=== PATIENT | female | born 1935 | race Caucasian/White ===

== ENCOUNTER 2017-11-27 19:57 | Emergency (ER) | payer MEDICARE, BC ==
[2017-11-27 20:35] VITALS: RESP 18
--- NOTE | 2017-11-27 21:16 | XR ---
EXAMINATION TYPE: XR ribs RT DATE OF EXAM: 11/27/2017 COMPARISON: NONE HISTORY: Rib pain TECHNIQUE: 5 views FINDINGS: There is no pleural effusion or pneumothorax. Right lung is clear of consolidation. I see n o rib fracture. IMPRESSION: No rib fracture seen.
--- NOTE | 2017-11-27 22:32 | ED ---
General Adult HPI - General Chief complaint: Chest Pain Stated complaint: cracked rib Time Seen by Provider: 11/27/17 21:24 Source: patient Mode of arrival: ambulatory Limitations: no limitations - History of Present Illness Initial comments: 82-year-old female patient presents with right rib pain 2 days. Patient states 2 days ago she was reaching down into the washer. States that the washer dug into the right ribs. States that after that she developed pain to the ribs however today after attempting to lie down the pain became much worse. Patient states that the pain progressed and worsened throughout the day. States it was difficult for her to breathe. States that she has increased pain to the right ribs whenever she attempts to take a deep breath. She denies any cough or hemoptysis. She denies any fevers or chills. Denies any abdominal pain, nausea, or vomiting. Denies any history of rib injury. Denies any other injuries. Patient denies any headache, neck pain, back pain, dizziness, weakness , abdominal pain, nausea, vomiting, or difficulties with bowel movements or urination. - Related Data Previous Rx's Medication Instructions Recorded Lidocaine 5% Patch [Lidoderm] 1 patch TOPICAL DAILY #10 patch 11/27/17 Allergies Allergy/AdvReac Type Severity Reaction Status Date / Time Penicillins Allergy Rash/Hives Verified 11/27/17 20:35 Review of Systems ROS Statement: Those systems with pertinent positive or pertinent negative responses have been documented in the HPI. ROS Other: All systems not noted in ROS Statement are negative. Past Medical History Past Medical History: Hypertension, Osteoarthritis (OA) History of Any Multi-Drug Resistant Organisms: None Reported Past Surgical History: Section, Orthopedic Surgery, Tonsillectomy Additional Past Surgical History / Comment(s): hilaria knee, thumb Past Psychological History: No Psychological Hx Reported Smoking Status: Never smoker Past Alcohol Use History: None Reported Past Drug Use History: None Reported General Exam Limitations: no limitations General appearance: alert, in no apparent distress, other (This is a well- developed, well-nourished elderly female patient in no acute distress. Vital signs upon presentation are temperature 97.2F, pulse 54, respirations 18, blood pressure 151/70, pulse ox 95% on room air.) Eye exam: Present: normal appearance, PERRL, EOMI. Absent: scleral icterus, conjunctival injection, periorbital swelling ENT exam: Present: normal exam, normal oropharynx, mucous membranes moist Respiratory exam: Present: normal lung sounds bilaterally, chest wall tenderness (Right lower rib tenderness. ), other (No ecchymosis. ). Absent: respiratory distress, wheezes, rales, rhonchi, stridor Cardiovascular Exam: Present: regular rate, normal rhythm, normal heart sounds. Absent: systolic murmur, diastolic murmur, rubs, gallop, clicks GI/Abdominal exam: Present: soft, normal bowel sounds, other (No abdominal tenderness. Negative Sandy's Sign. ). Absent: distended, tenderness, guarding , rebound, rigid Back exam: Present: normal inspection, other (No flank ecchymosis.). Absent: CVA tenderness (R), CVA tenderness (L) Neurological exam: Present: alert, oriented X3, CN II-XII intact Psychiatric exam: Present: normal affect, normal mood Skin exam: Present: warm, dry, intact, normal color. Absent: rash Course Vital Signs 11/27/17 20:30 Temperature 97.3 F L Pulse Rate 54 L Respiratory 18 Rate Blood Pressure 151/70 O2 Sat by Pulse 95 Oximetry Medical Decision Making - Medical Decision Making 82-year-old female patient presents the emergency department today for complaints of right rib pain. Physical examination is reveal tenderness to the right anterior ribs. There is no evidence of ecchymosis or surface trauma. Patient is currently breathing without difficulty. Vital signs are stable. X- ray of the right ribs is negative. Right lung appears normal. I did discuss findings and results with the patient. We did discuss possibility of an occult fracture. We did discuss coughing and deep breathing exercises and splinting. Patient will be given incentive spirometry education. We will provide Lidoderm patch here and she is instructed to take Tylenol and Motrin. I did offer stronger pain medication however she refuses stating that she gets "silly". She is instructed to follow-up with her primary care physician for recheck in 1- 2 days. Return parameters discussed in detail. She verbalizes understanding and agrees with this plan. - Radiology Data Radiology results: report reviewed, image reviewed 5 views of the right ribs are obtained. There is no pleural effusion or pneumothorax. Right lung is clear consolidation. I see no rib fracture. Impression by Dr. Ostermann shows no rib fracture seen. Disposition Clinical Impression: Rib injury Disposition: HOME SELF-CARE Condition: Good Instructions: Rib Fracture (ED) Additional Instructions: Perform coughing and deep breathing. Use incentives prominent are as educated. Use pillow for splinting. Use medications as directed. Follow-up with your primary care physician for recheck in 1-2 days. Return here immediately for any new, worsening, or concerning symptoms. Prescriptions: Lidocaine 5% Patch [Lidoderm] 1 patch TOPICAL DAILY #10 patch Is patient prescribed a controlled substance at d/c from ED?: No Referrals: Antolin Arzola Jr, DO [Primary Care Provider] - 1-2 days Time of Disposition: 22:42
[2017-11-27] MEDS ORDERED: LIDOCAINE 5% PATCH TOPICAL STA (22:39)
[2017-11-27] MEDS ORDERED: ACETAMINOPHEN TAB 500 MG TAB PO STA (22:40)
[2017-11-27 23:25] VITALS: BP 145/79; PULSE 56; TEMP 97.6
== END 2017-11-27 23:24 | disposition home or self-care (01) ==
LOC: EC 19:57
DX: S29.9XXA Unspecified injury of thorax, initial encounter (principal); Z88.0 Allergy status to penicillin; Z53.29 Procedure and treatment not carried out because of patient's decision for other reasons; W29.2XXA Contact with other powered household machinery, initial encounter; Y92.009 Unspecified place in unspecified non-institutional (private) residence as the place of occurrence of the external cause
CPT/HCPCS: 99283

== ENCOUNTER → 2019-05-16 | Outpatient (CLI) | payer MEDICARE, OTHER ==
--- NOTE | 2019-05-16 11:57 | P.CRDCN ---
History of Present Illness Consult date: 05/16/19 History of present illness: This is a 83-year-old female with history of hypertension and also hypercholesterolemia who was referred for a stress test because of chest pains. Patient has been having chest pains mostly with moderate exertional activities. She complains of some aching sensation on the left side associated with shortness of breath. No complaints of any dizziness or palpitations or syncope. Patient walked on the treadmill for about 4 minutes and 40 seconds achieving a maximum rate of 119 with a blood pressure of about 159/54. Patient developed mild chest tightness associated shortness of breath. Her EKG showed ST depression which is horizontal with T-wave inversions in the inferolateral leads. These EKG changes persisted for about 67 minutes. In the post x-rays. Her symptoms gradually improved. Her echocardiogram at baseline showed normal LV function. There is inducible ischemic changes involving the inferobasal segment and inferoseptal area on the stress echocardiogram. Because of her symptoms and ischemic changes, patient is advised to have a cardiac catheterization for definitive diagnosis. Patient fully understood and accepted the risks and benefits. This is being scheduled to be done on Thursday. Review of Systems REVIEW OF SYSTEMS: CONSTITUTIONAL:. Patient is doing well. No complaints of fever or chills EYES: Denies diplopia, blurring of vision EARS, NOSE, MOUTH, THROAT: Denies headaches, denies sore throat. CARDIOVASCULAR: As per the chart RESPIRATORY: Denies shortness of breath, denies cough. GASTROINTESTINAL: Denies change in appetite, denies abdominal pain, denies diarrhea GENITOURINARY: Denies hematuria, denies infections. MUSKULOSKELETAL: Denies pain, denies swelling. Denies any cramps or claudication INTEGUMENTARY: Denies rash, denies eczema. NEUROLOGICAL: Denies focal weakness, or visual disturbance. Denies any dizziness or syncope PSYCHIATRIC: Denies anxiety, denies depression. HEMATOLOGIC/LYMPHATIC: Denies any bleeding, denies enlarged lymph nodes. Past Medical History Past Medical History: Hypertension, Osteoarthritis (OA) History of Any Multi-Drug Resistant Organisms: None Reported Past Surgical History: Section, Orthopedic Surgery, Tonsillectomy Additional Past Surgical History / Comment(s): hilaria knee, thumb Past Psychological History: No Psychological Hx Reported Smoking Status: Never smoker Past Alcohol Use History: None Reported Past Drug Use History: None Reported Medications and Allergies Home Medications and Allergies Comment(s): Tenormin, Zocor, Lamictal, gabapentin, Synthyroid, Mirapex Home Medications Medication Instructions Recorded Confirmed Type Lidocaine 5% Patch [Lidoderm] 1 patch TOPICAL DAILY #10 patch 11/27/17 Rx Allergies Allergy/AdvReac Type Severity Reaction Status Date / Time Penicillins Allergy Rash/Hives Verified 11/27/17 20:35 Physical Exam GENERAL EXAM: Patient is alert and oriented and doesn't appear to be in any acute distress HEENT: Normocephalic. Normal reaction of pupils, equal size, normal range of extraocular motion. No erythema or exudates in the throat. NECK: No masses, no nuchal rigidity. CHEST: No chest wall deformity. LUNGS: Equal air entry with no crackles or wheeze. HEART: S1 and S2 normal with no audible mumurs or gallops. Regular rhythm, femorals equal on both sides.. ABDOMEN: No hepatosplenomegaly, normal bowel sounds, no guarding or rigidity. SKIN: No rashes CENTRAL NERVOUS SYSTEM: No focal deficits. EXTREMITIES: No cyanosis, clubbing or edema. EKG Interpretations (text) Sinus rhythm Assessment and Plan (1) Crescendo angina Current Visit: Yes Status: Acute Code(s): I20.0 - UNSTABLE ANGINA SNOMED Code(s): 1167659 (2) Positive cardiac stress test Current Visit: Yes Status: Acute Code(s): R94.39 - ABNORMAL RESULT OF OTHER CARDIOVASCULAR FUNCTION STUDY SNOMED Code(s): 153046405 (3) Essential hypertension Current Visit: Yes Status: Acute Code(s): I10 - ESSENTIAL (PRIMARY) HYPERTENSION SNOMED Code(s): 49273464 (4) Hypercholesterolemia Current Visit: Yes Status: Acute Code(s): E78.00 - PURE HYPERCHOLESTEROLEMIA, UNSPECIFIED SNOMED Code(s): 67507473 (5) Hypothyroidism Current Visit: Yes Status: Acute Code(s): E03.9 - HYPOTHYROIDISM, UNSPECIFIED SNOMED Code(s): 26946712 Plan: Patient is already on Tenormin and Zocor. I'm going to add by mouth nitrates and also nitroglycerin sublingual. Patient is advised to take a baby aspirin a day. She is being scheduled for a cardiac catheterization. Further recommendations depend upon the findings on the cardiac cath.
--- NOTE | 2019-05-16 12:02 | P.STRESS ---
- Stress Test Note Stress Test Results/Findings: Exam Performed: Exam Date: Reason for Exam: Height: Weight: Protocol: Stage: Duration of Exercise: Resting Heart Rate: Resting Blood Pressure: Maximum Achieved Heart Rate: Maximum Achieved Blood Pressure: 85% PMHR: 100% PMHR: METS: Technologist Comment: Stress Test Results/Findings: This is a 83-year-old female with history of hypertension and hypercholesterolemia being evaluated for symptoms of chest pain. Stress data: Baseline EKG showed sinus rhythm with normal W[place] interval, aspiration. Blood pressure at rest is 113/83 with pulse rate of 56. Patient walked on the Ike protocol for 4 minutes and 40 seconds achieving a maximum heart rate of 119 with blood pressure 151/58. EKGs taken during the exercise showed about [address] depression in inferolateral leads, which is horizontal associated with T-wave inversions. These changes persisted for about 6-7 minutes, in the post exercise period. Echo data: Baseline echo images show normal wall motion and thickening. Exercise echo measures showed hypokinesia of the inferobasal and inferoseptal area suggestive of ischemia. These changes reverted back to normal in the post exercise period. Final impression: #1. Positive stress test #2. Positive stress echo with reversible ischemic changes noted in the inferoseptal and inferobasal segments
--- NOTE | 2019-05-17 13:11 | ECHOS ---
Stress Test Results/Findings: Exam Performed: Stress Echo Exam Date: 05/16/2019 Reason for Exam: Chest Pain Height: 62inches Weight: 180lbs Protocol: Stresss Echo Stage: 2 Duration of Exercise: 4:40 Resting Heart Rate: 56 Resting Blood Pressure: 113/83 Maximum Achieved Heart Rate: 119 Maximum Achieved Blood Pressure: 156/53 85% PMHR: 118 100% PMHR: 139 METS: Technologist Comment: Stress Test Results/Findings: This is a 83-year-old female with history of hypertension and hypercholesterolemia being evaluated for symptoms of chest pain. Stress data: Baseline EKG showed sinus rhythm with normal IA interval, aspiration. Blood pressure at rest is 113/83 with pulse rate of 56. Patient walked on the Ike protocol for 4 minutes and 40 seconds achieving a maximum heart rate of 119 with blood pressure 151/58. EKGs taken during the exercise showed about [address] depression in inferolateral leads, which is horizontal associated with T-wave inversions. These changes persisted for about 6-7 minutes, in the post exercise period. Echo data: Baseline echo images show normal wall motion and thickening. Exercise echo measures showed hypokinesia of the inferobasal and inferoseptal area suggestive of ischemia. These changes reverted back to normal in the post exercise period. Final impression: #1. Positive stress test #2. Positive stress echo with reversible ischemic changes noted in the inferoseptal and inferobasal segments MTDD
== END | disposition home or self-care (01) ==
LOC: RADNMMAIN 09:39
PROVIDERS: ATTEND Family Medicine
DX: R07.1 Chest pain on breathing (principal)
CPT/HCPCS: 93351

== ENCOUNTER → 2019-05-18 | Day surgery (SDC) | payer MEDICARE ==
[2019-05-17 10:05] VITALS: BMI 33.0
[~2019-05-18] MED LIST: ALPRAZolam 0.25 MG TAB PO PRN; ALPRAZolam 0.5 MG TAB PO PRN; ASPIRIN 325 MG TAB PO ONE; ATORVASTATIN 80 MG TAB PO ONE; HEPARIN SODIUM 1,000 UN/ML (10ML VL) IV ONE; HEPARIN SODIUM 1,000 UN/ML (10ML VL) ONE; IOPAMIDOL-370 125ML BTL INJ ONE; LIDOCAINE 1% INJ 10MG/ML (20 ML MDV) ONE; LIDOCAINE 1% INJ 10MG/ML (20 ML MDV) SQ ONE; NITROGLYCERIN SL TABS 0.4 MG TAB SUBLINGUAL PRN; PRAMIPEXOLE 0.25 MG TAB PO SCH; SODIUM CHLORIDE 0.9% 1,000 ML in EMPTY BAG 1 BAG IV ONE; VERAPAMIL 2.5 MG/ML 2 ML AMP ONE; VERAPAMIL SYRINGE (5 MG/10 ML) INTRAARTER ONE; fentaNYL (PF) 50 MCG/ML 2 ML AMP IV ONE; fentaNYL (PF) 50 MCG/ML 2 ML AMP ONE
[2019-05-18 08:33] VITALS: RESP 18; TEMP 98.1
[2019-05-18 08:41] LABS: Basophils % (A) 0 %; Eosinophils # (A) 0.1 k/uL (0-0.7); Eosinophils % (A) 2 %; HCT 38.4 % (34.0-46.0); HGB 12.6 gm/dL (11.4-16.0); Lymphocytes # (A) 1.9 k/uL (1.0-4.8); Lymphocytes % (A) 29 %; MCH 31.2 pg (25.0-35.0); MCHC 32.9 g/dL (31.0-37.0); MCV 94.8 fL (80.0-100.0); Mean Platelet Volume 7.9; Monocytes # (A) 0.4 k/uL (0-1.0); Monocytes % (A) 5 %; Neutrophils % (A) 61 %; Platelet Count 203 k/uL (150-450); RBC 4.05 m/uL (3.80-5.40); RDW 13.5 % (11.5-15.5); WBC 6.6 k/uL (3.8-10.6)
[2019-05-18 08:47] LABS: Calcium 9.1 mg/dL (8.4-10.2); Potassium 4.3 mmol/L (3.5-5.1)
[2019-05-18] MEDS: MIDAZOLAM 2 MG/2 ML VIAL IV ONE ×2 (09:12→09:32)
--- NOTE | 2019-05-18 10:05 | P.CARDCATH ---
Date of Procedure: 05/18/19 Preoperative Diagnosis: Chest pain, hypertension and positive stress test Postoperative Diagnosis: Normal coronary arteries Procedure(s) Performed: Left heart catheterization without left ventriculography Description of Procedure: HISTORY: This is a 83-year-old female with history of hypertension was been having exertional chest tightness and shortness of breath. Had a stress test which showed positive changes on the EKGs with the ischemic changes noted in the inferior and inferolateral wall on the stress echocardiogram. Patient was advised to have cardiac catheterization for definitive diagnosis. CONSENT:I have discussed the risks, benefits and alternative therapies for the above-mentioned procedure and for both sedation/analgesia as well as necessary blood product administration, if indicated, as they pertain to this patient. The patient has indicated understanding and acceptance of the risks and procedures discussed. [] PROCEDURE: Patient was brought to the lab in a fasting state. Patient was given some IV sedation. The right wrist was infiltrated and the right radial artery was entered using Seldinger technique. A 6-Wallisian sheath was left in place. Attempts were made to do cardiac catheterization but right coronary catheter could not be manually patent. Because of tortuosity in subclavian artery area and the procedure was abandoned and completed from the right groin approach. TR band was applied for hemostasis The right groin is infiltrated with lidocaine and right femoral artery was entered using Seldinger technique. A 6-Wallisian catheter was left in place and selective coronary arteriography was performed. Patient tolerated the procedure well. Femoral angiogram was performed and Angio-Seal was applied for hemostasis. No immediate complications were noted and patient was transferred to [facility] in a stable condition Conscious Sedation: Versed 1mg Fentanyl 12.5 g Duration 35minutes HEMODYNAMICS: The aortic pressure is about 140/70. The left ventricle end- diastolic pressure was 12. There was no gradient across the aortic valve SELECTIVE CORONARY ARTERIOGRAPHY: LEFT MAIN: Short and divides into left circumflex and LAD immediately THE LEFT ANTERIOR DESCENDING CORONARY ARTERY: This is a fair caliber vessel with mild irregularity in the proximal portion. Gives rise to moderate caliber diagonal branch. The LAD and branches are free of any Sigmund occlusive disease THE LEFT CIRCUMFLEX AND IS CORONARY ARTERY:. This is a good caliber vessel giving rise good-sized OM branch. Circumflex coronary artery is a dominant vessel free of any significant occlusive disease THE RIGHT CORONARY ARTERY:. Small and nondominant and free of occlusive disease LEFT VENTRICULOGRAPHY:. Not performed FINAL IMPRESSION:. Minimal coronary artery disease PLAN: And the maximum medical therapy and risk factor modification PROGNOSIS:. Good
[2019-05-18 15:55] VITALS: BP 135/63; PULSE 54
== END | disposition home or self-care (01) ==
LOC: CATHCVL 07:48
PROVIDERS: ATTEND Internal Medicine Cardiovascular Disease
DX: I20.0 Unstable angina (principal); R94.39 Abnormal result of other cardiovascular function study; I10 Essential (primary) hypertension; E78.00 Pure hypercholesterolemia, unspecified; M19.90 Unspecified osteoarthritis, unspecified site; Z79.890 Hormone replacement therapy; Z79.899 Other long term (current) drug therapy; Z88.0 Allergy status to penicillin; Z98.890 Other specified postprocedural states
CPT/HCPCS: 93458; 80048; 85025; C1760; C1769 ×4; C1894 ×2; J2250; J2001; J3010; J1644; Q9967

== ENCOUNTER → 2019-10-26 | Outpatient (CLI) | payer MEDICARE ==
--- NOTE | 2019-10-27 07:23 | US ---
EXAMINATION TYPE: US carotid duplex BILAT DATE OF EXAM: 10/26/2019 COMPARISON: NONE CLINICAL HISTORY: 84-year-old female G45.3 Amaurosis fugax. TECHNIQUE: Carotid duplex ultrasound examination. Indirect Doppler criteria was utilized. FINDINGS: EXAM MEASUREMENTS: RIGHT: Peak Systolic Velocity (PSV) cm/sec ----- Right CCA: 57.5 ----- Right ICA: 93.9 ----- Right ECA: 91.0 ICA/CCA ratio: 1.6 RIGHT: End Diastole cm/sec ----- Right CCA: 12.5 ----- Right ICA: 29.9 ----- Right ECA: 0 LEFT: Peak Systolic Velocity (PSV) cm/sec ----- Left CCA: 107.0 ----- Left ICA: 121.5 ----- Left ECA: 67.7 ICA/CCA ratio: 1.1 LEFT: End Diastole cm/sec ----- Left CCA: 24.1 ----- Left ICA: 41.6 ----- Left ECA: 24.1 VERTEBRALS (direction of flow): Right Vertebral: Antegrade Left Vertebral: Antegrade Rhythm: Normal [employer] notes: No significant stenosis seen IMPRESSION: No hemodynamically significant internal carotid artery stenosis on either side. Criteria for Assigning % of Stenosis / Diameter reduction (Estimation based on the indirect measurements of the internal carotid artery velocities (ICA PSV). 1. Normal (no stenosis)=ICA PSV < 125 cm/s: ratio < 2.0: ICA EDV<40 cm/s. 2. Less than 50% stenosis=ICA PSV < 125 cm/s: ratio < 2.0: ICA EDV<40 cm/s. 3. 50 to 69% stenosis=ICA PSV of 125 to 230 cm/s: ration 2.0 ? 4.0: ICA EDV 40-100 cm/s. 4. Greater than 70% stenosis to near occlusion= ICA PSV > 230 cm/s: ratio > 4.0: ICA EDV > 100 cm/s. 5. Near occlusion= ICA PSV velocities may be low or undetectable: variable ratio and ICA EDV. 6. Total occlusion=unable to detect flow.
== END | disposition home or self-care (01) ==
LOC: RADUSWWP 15:48
PROVIDERS: ATTEND Family Medicine
DX: G45.3 Amaurosis fugax (principal); R55 Syncope and collapse; Z88.0 Allergy status to penicillin
CPT/HCPCS: 93880

== ENCOUNTER → 2022-01-31 | Outpatient (CLI) | payer MEDICARE ==
--- NOTE | 2022-01-31 14:52 | NM ---
EXAMINATION TYPE: NM bone scan whole body DATE OF EXAM: 01/31/2022 COMPARISON: NONE HISTORY: Delayed whole-body scanning was performed following the injection of 21.2 mCi Tc 99m MDP. Images wer e acquired 3.5 hours post injection. FINDINGS: There is increased uptake at the region of the sixth through eighth right ribs. This can be seen in p osttraumatic changes. Exact levels are somewhat unclear Increased uptake is the region of the carpal metacarpal junction of the bilateral wrists likely degen erative in nature. Degenerative type changes are likely within the bilateral feet. There is some uptake within the left and right posterior lumbar spine and in the posterior mid left n mayi likely degenerative in nature. Punctate area in the region of posterior T4 may be degenerative in nature IMPRESSION: 1. Focal uptake within the mid anterior right rib ends and 3 sequential ribs likely in the region of 6 through 8 can be compatible with posttraumatic change. 2. Increased uptake within the posterior lower lumbar spine can be degenerative in nature. 3. Additional foci of uptake likely related to degenerative nature discussed above.
== END | disposition home or self-care (01) ==
LOC: RADNMMAIN 10:08
PROVIDERS: ATTEND Physical Medicine & Rehabilitation
DX: M54.50 Low back pain, unspecified (principal); R93.7 Abnormal findings on diagnostic imaging of other parts of musculoskeletal system
CPT/HCPCS: 78306; A9503

== ENCOUNTER → 2023-02-19 | Outpatient (CLI) | payer MEDICARE ==
[2023-02-19 16:21] LABS: C Reactive Protein <0.30 mg/dL (0.00-0.80)
[2023-02-19 16:25] LABS: Prealbumin 24.2 mg/dL (18.0-42.0)
[2023-02-19 17:19] LABS: Basophils # (A) 0.03 X 10*3/uL (0.00-0.10); Basophils % (A) 0.3 %; Eosinophils # (A) 0.12 X 10*3/uL (0.04-0.35); Eosinophils % (A) 1.4 %; HCT 41.8 % (37.2-46.3); HGB 13.3 d/dL (12.0-15.0); Lymphocytes # (A) 1.97 X 10*3/uL (0.90-5.00); MCH 30.8 pg (27.0-32.0); MCHC 31.8 d/dL (32.0-37.0); MCV 96.8 FL (80.0-97.0); Mean Platelet Volume 10.6 FL (9.5-12.2); Monocytes # (A) 0.52 X 10*3/uL (0.20-1.00); Monocytes % (A) 6.1 %; NRBC Per 100 WBC 0 X 10*3/uL (0.00-0.01); Neutrophils % (A) 68.7 %; Platelet Count 254 X 10*3/uL (140-440); RBC 4.32 X 10*6/uL (4.10-5.20); RDW 13.3 % (11.5-14.5); WBC 8.58 X 10*3/uL (4.50-10.00)
[2023-02-19 18:17] LABS: Erythrocyte Sedimentation Rate 7 mm/Hr (0-30)
== END | disposition home or self-care (01) ==
LOC: LABWHC1 10:43
PROVIDERS: ATTEND Family Medicine
DX: I10 Essential (primary) hypertension (principal); I87.311 Chronic venous hypertension (idiopathic) with ulcer of right lower extremity; E78.2 Mixed hyperlipidemia; E03.9 Hypothyroidism, unspecified
CPT/HCPCS: 36415; 84134; 85025; 85652; 86140

== ENCOUNTER 2024-02-22 09:11 | Emergency (ER) | payer MEDICARE ==
--- NOTE | 2024-02-22 10:43 | XR ---
EXAMINATION TYPE: XR thoracic spine 2V DATE OF EXAM: 02/22/2024 10:08 AM COMPARISON: None. CLINICAL INDICATION: Female, 88 years old with history of fall, pain. TECHNIQUE: XR thoracic spine 2V view(s) obtained. FINDINGS: There are 12 thoracic type vertebral bodies. Pedicles are intact. Disc heights appear preserved. Vert ebral body heights are preserved. Alignment is unremarkable. IMPRESSION: 1. No acute osseous abnormality thoracic spine. [facility], , 02/22/2024 10:41 AM
--- NOTE | 2024-02-22 10:47 | XR ---
EXAMINATION TYPE: XR ribs RT w pa chest xray DATE OF EXAM: 02/22/2024 10:08 AM COMPARISON: 11/27/2017 CLINICAL INDICATION: Female, 88 years old with history of fall, pain TECHNIQUE: XR ribs RT w pa chest xray view(s) obtained. FINDINGS: Heart size is normal. Pulmonary vasculature is normal. Some mild right basilar atelectasis may be pre sent. Lungs otherwise appear clear. No pneumothorax is evident. 2 views of the right ribs were obtained. Very subtle anterior right sixth rib fracture may be present . This is nondisplaced. No displaced rib fractures are evident. A subtle nondisplaced seventh rib fr acture is not entirely excluded anteriorly IMPRESSION: 1. Suspected 6 and possible seventh anterior rib fracture. 2. No pneumothorax evident. [facility], , 02/22/2024 10:44 AM
--- NOTE | 2024-02-22 11:33 | ED ---
General Adult HPI - General Chief complaint: Back Pain/Injury Stated complaint: fall Time Seen by Provider: 02/22/24 09:29 Source: patient, RN notes reviewed, old records reviewed Mode of arrival: wheelchair Limitations: physical limitation - History of Present Illness Initial comments: 88-year-old female presents for evaluation of back pain and lateral chest wall pain after fall which occurred approximately 10 days ago. Patient states she was seen at outside hospital and CT imaging which did not show definitive fracture. She states she was improving but then while attempting to sleep in bed she had gone to sit up and developed new and worse pain in the mid back and lateral chest wall. This occurred several days prior. No difficulty breathing. No fever. No abdominal pain. - Related Data Home Medications Medication Instructions Recorded Confirmed Levothyroxine Sodium [Synthroid] 75 mcg PO DAILY 05/17/19 05/18/19 Simvastatin [Zocor] 40 mg PO HS 05/17/19 05/17/19 lamoTRIgine [LaMICtal] 100 mg PO BID 05/17/19 05/18/19 Pramipexole Di-HCl [Mirapex] 0.25 mg PO DAILY 05/18/19 05/18/19 Nitrofurantoin Monohyd/M-Cryst 100 mg PO Q12HR 02/22/24 02/22/24 [Macrobid] atenoloL [Tenormin] 25 mg PO DAILY 02/22/24 02/22/24 Previous Rx's Medication Instructions Recorded HYDROcodone/APAP 5-325MG [Keene 1 tab PO Q6HR PRN #12 tab 02/22/24 5-325] Allergies Allergy/AdvReac Type Severity Reaction Status Date / Time Penicillins Allergy Rash/Hives Verified 05/18/19 08:09 Review of Systems ROS Statement: Those systems with pertinent positive or pertinent negative responses have been documented in the HPI. ROS Other: All systems not noted in ROS Statement are negative. Past Medical History Past Medical History: Hyperlipidemia, Hypertension, Osteoarthritis (OA), Seizure Disorder, Thyroid Disorder Additional Past Medical History / Comment(s): seizures years ago, neuropathy hilaria feet History of Any Multi-Drug Resistant Organisms: None Reported Past Surgical History: Section, Joint Replacement, Orthopedic Surgery, Tonsillectomy Additional Past Surgical History / Comment(s): hilaria knee replacement, thumb, C/S x2 Past Anesthesia/Blood Transfusion Reactions: No Reported Reaction Past Psychological History: No Psychological Hx Reported Smoking Status: Never smoker Past Alcohol Use History: None Reported Past Drug Use History: None Reported - Past Family History Mother Family Medical History: No Reported History General Exam Limitations: physical limitation General appearance: alert, in no apparent distress Head exam: Present: atraumatic, normocephalic Eye exam: Present: normal appearance, PERRL ENT exam: Present: normal exam Neck exam: Present: normal inspection. Absent: tenderness, meningismus Respiratory exam: Present: normal lung sounds bilaterally, chest wall tenderness. Absent: respiratory distress, wheezes Cardiovascular Exam: Present: regular rate, normal rhythm GI/Abdominal exam: Present: soft. Absent: distended, tenderness Extremities exam: Present: normal inspection Back exam: Present: paraspinal tenderness (Thoracic) Neurological exam: Present: alert, oriented X3 Psychiatric exam: Present: normal affect, normal mood Course Vital Signs 02/22/24 09:13 Temperature 98.6 F Pulse Rate 57 L Respiratory 18 Rate Blood Pressure 192/68 O2 Sat by Pulse 97 Oximetry Medical Decision Making - Medical Decision Making Was pt. sent in by a medical professional or institution (, PA, NEUROLOGICAL PHYSIOTHERAPIST, urgent care, hospital, or retirement...) When possible be specific @ -No Did you speak to anyone other than the patient for history (EMS, parent, family, police, friend...)? What history was obtained from this source @ -No Did you review nursing and triage notes (agree or disagree)? Why? @ -I reviewed and agree with nursing and triage notes Were old charts reviewed (outside hosp., previous admission, EMS record, old EKG, old radiological studies, urgent care reports/EKG's, retirement records)? Report findings @ -No old charts were reviewed Differential Diagnosis :vertebral fracture, rib fracture, muscle sprain EKG interpreted by me (3pts min.). @ -As above X-rays interpreted by me (1pt min.). @ -X-ray of the thoracic spine is negative for compression fracture or acute abnormality, x-ray of the ribs and chest shows minimally displaced rib fracture on the sixth and seventh rib on the right this does correspond to the patient's pain. CT interpreted by me (1pt min.). @ -None done U/S interpreted by me (1pt. min.). @ -None done What testing was considered but not performed or refused? (CT, X-rays, U/S, labs)? Why? @ -None What meds were considered but not given or refused? Why? @ -None Did you discuss the management of the patient with other professionals (professionals i.e. , PA, NEUROLOGICAL PHYSIOTHERAPIST, lab, RT, psych nurse, social worker aide, novelty twister operator, teacher, chief communications officer, supportive employment case manager)? Give summary @ -No Was smoking cessation discussed for >3mins.? @ -No Was critical care preformed (if so, how long)? @ -No Were there social determinants of health that impacted care today? How? (Homelessness, low income, unemployed, alcoholism, drug addiction, transportation, low edu. Level, literacy, decrease access to med. care, longterm, rehab)? @ -No Was there de-escalation of care discussed even if they declined (Discuss DNR or withdrawal of care, Hospice)? DNR status @ -No What co-morbidities impacted this encounter? (DM, HTN, Smoking, COPD, CAD, Cancer, CVA, ARF, Chemo, Hep., AIDS, mental health diagnosis, sleep apnea, morbid obesity)? @ -None Was patient admitted / discharged? Hospital course, mention meds given and ro [place], prescriptions, significant lab abnormalities, going to OR and other pertinent info. @ -[88-year-old female with back pain after fall, chest wall pain. X-rays performed showing minimally displaced rib fractures on the right consistent with patient's pain. We did discuss pain control and the possibility of admission. Patient prefers discharge at this time. We will trial Keene for pain. She is given an incentive spirometer in the emergency room. Daughter at bedside who is agreeable. Undiagnosed new problem with uncertain prognosis? @ -No Drug Therapy requiring intensive monitoring for toxicity (Heparin, Nitro, Insulin, Cardizem)? @ -No Were any procedures done? @ -No Diagnosis/symptom? @ -Rib fracture Acute, or Chronic, or Acute on Chronic? @ -Acute Uncomplicated (without systemic symptoms) or Complicated (systemic symptoms)? @ -Default Side effects of treatment? @ -No Exacerbation, Progression, or Severe Exacerbation? @ -No Poses a threat to life or bodily function? How? (Chest pain, [place], [place], pneumonia, PE, COPD, DKA, ARF, appy, cholecystitis, CVA, Diverticulitis, Homicidal, Suicidal, threat to staff... and all critical care pts) @ -Low risk at this time Disposition Clinical Impression: Rib fractures Disposition: HOME SELF-CARE Condition: Fair Instructions (If sedation given, give patient instructions): Rib Fracture (ED) Prescriptions: HYDROcodone/APAP 5-325MG [Keene 5-325] 1 tab PO Q6HR PRN #12 tab PRN Reason: Pain Is patient prescribed a controlled substance at d/c from ED?: No Referrals: Antolin Arzola Jr, DO [Primary Care Provider] - 1-2 days Time of Disposition: 11:31
[2024-02-22 11:42] VITALS: BP 197/69; PULSE 45; RESP 16; TEMP 98.4
== END 2024-02-22 11:43 | disposition home or self-care (01) ==
LOC: EC 09:11
DX: S22.31XA Fracture of one rib, right side, initial encounter for closed fracture (principal); Z88.0 Allergy status to penicillin; W19.XXXA Unspecified fall, initial encounter
CPT/HCPCS: 72070; 99283

== ENCOUNTER → 2024-04-15 | Outpatient (CLI) | payer MEDICARE ==
--- NOTE | 2024-04-15 12:11 | CA ---
Transthoracic Echo Report Name: Aleah Sheppard Age: 88 Gender: F : 1935 Exam Date: 04/15/2024 08:33 Exam Location: [facility] Ht (in): 61 Wt (lb): 180 Ordering Physician: Antolin Arzola DO Attending/Referring Phys: English Language Learner Tutor Sheila Solano RDCS Procedure CPT: Indications: R01.1 Murmur Cardiac Hx: Technical Quality: Fair Contrast 1: Total Dose (mL): Contrast 2: Total Dose (mL): MEASUREMENTS (Male / Female) Normal Values 2D ECHO LV Diastolic Diameter PLAX 4.0 cm 4.2 - 5.9 / 3.9 - 5.3 cm LV Systolic Diameter PLAX 2.8 cm IVS Diastolic Thickness 1.4 cm 0.6 - 1.0 / 0.6 - 0.9 cm LVPW Diastolic Thickness 1.5 cm 0.6 - 1.0 / 0.6 - 0.9 cm LV Relative Wall Thickness 0.7 RV Internal Dim ED PLAX 3.5 cm LVOT Diameter 1.6 cm LA Volume 62.3 cm??? 18 - 58 / 22 - 52 cm??? LA Volume Index 32.6 cm???/m??? 16 - 28 cm???/m??? M-MODE Aortic Root Diameter MM 3.1 cm LA Systolic Diameter MM 4.1 cm LA Ao Ratio MM 1.3 AV Cusp Separation MM 1.2 cm DOPPLER AV Peak Velocity 183.4 cm/s AV Peak Gradient 13.5 mmHg AV Mean Velocity 129.3 cm/s AV Mean Gradient 7.2 mmHg AV Velocity Time Integral 48.3 cm LVOT Peak Velocity 111.8 cm/s LVOT Peak Gradient 5.0 mmHg LVOT Velocity Time Integral 29.7 cm LVOT Stroke Volume 57.8 cm??? LVOT Stroke Volume Index 32.0 ml/m??? LVOT Cardiac Index 1663.9 cm???/min???m??? AV Area Cont Eq vti 1.2 cm??? AV Area Cont Eq pk 1.2 cm??? MV Area PHT 2.6 cm??? Mitral E Point Velocity 89.6 cm/s Mitral A Point Velocity 102.0 cm/s Mitral E to A Ratio 0.9 MV Deceleration Time 292.8 ms FINDINGS Left Ventricle Moderately increased left ventricular wall thickness. Left ventricular cavity size normal. Normal left ventricular systolic function with no obvious regional wall motion abnormalities. Left ventricular ejection fraction is estimated at 55-60 %. Right Ventricle Mild right ventricular dilatation. Right ventricular systolic pressure within normal limits. Right Atrium Normal right atrial size. Left Atrium Mild left atrial dilatation. Mitral Valve Structurally normal mitral valve. Mitral valve thickened. Mild mitral annular calcification. Mild mitral regurgitation. Aortic Valve Trileaflet aortic valve. No aortic valve stenosis or regurgitation. Aortic valve sclerosis. Tricuspid Valve Structurally normal tricuspid valve. Mild tricuspid regurgitation. Pulmonic Valve Structurally normal pulmonic valve. Pericardium No pericardial effusion. Aorta Normal size aortic root and proximal ascending aorta. CONCLUSIONS Normal LV function Previewed by: Dr. Avery Yang MD (Electronically Signed) Final Date: 15 April 2024 12:10
== END | disposition home or self-care (01) ==
LOC: RADECHMAIN 08:20
PROVIDERS: ATTEND Family Medicine
DX: R01.1 Cardiac murmur, unspecified (principal)
CPT/HCPCS: 93306